=== PATIENT | female | born 1955 ===

== ENCOUNTER 2016-09-07 11:51 | Emergency (ER) | payer OTHER ==
[2016-09-07 12:10] VITALS: BP 127/75; PULSE 87; RESP 20; TEMP 98.5; O2SAT 97
[2016-09-07] MEDS ORDERED: Acetaminophen-Codeine 300/30 mg Tab PO STA (12:53)
--- NOTE | 2016-09-07 13:09 | ED PDOC ---
HPI: Trauma/Fall - HPI Time Seen by Provider: 09/07/16 12:24 Chief Complaint (Nursing): Rib Injury Chief Complaint (Provider): right sided rib pain History Per: Patient History/Exam Limitations: no limitations Onset/Duration Of Symptoms: Days (x 8) Injury Occurred (Timing): Days Ago: (x 8) Additional Complaint(s): Rita Webster is a 61 year old female, with a previous medical history of hypertension and herniated lumbar disc, who presents to the ED with complaints of right sided rib pain ongoing for the past 8 days secondary to injuring herself. Pt reports 8 days prior to arrival she was shopping in the grocery store when she attempted to reach for an [employer] cake and she leaned over a counter height freezet and after she grabbed the cake, she bumped her right ribs (below breast) against the freezer--causing an immediate sharp rib pain and she heard/felt a "crack". Pt states pain is constant. Pt reports to self medicating with advil to alleviate symptoms with no relief. Pt states pain is worse with movement and deep inhalation or if coughs. Pt denies any shortness of breath. PMD: Zohaib Clinton MD Past Medical History Reviewed: Historical Data, Nursing Documentation, Vital Signs Vital Signs: Last Vital Signs Temp 98.5 F 09/07/16 12:05 Pulse 87 09/07/16 12:05 Resp 20 09/07/16 12:05 BP 127/75 09/07/16 12:05 Pulse Ox 97 09/07/16 12:05 - Medical History PMH: HTN - Family History Family History: States: No Known Family Hx - Social History Current smoker - smoking cessation education provided: No Alcohol: None Drugs: Denies - Immunization History Hx Tetanus Toxoid Vaccination: No Hx Influenza Vaccination: No Hx Pneumococcal Vaccination: No - Home Medications Home Medications: Ambulatory Orders Medication Instructions Recorded Oxycodone HCl/Acetaminophen 1 tab PO Q6H PRN #5 tab 08/23/15 [Percocet 325 mg-5 mg] - Allergies Allergies/Adverse Reactions: Allergies Allergy/AdvReac Type Severity Reaction Status Date / Time No Known Allergies Allergy Verified 08/23/15 08:33 Review of Systems ROS Statement: Except As Marked, All Systems Reviewed And Found Negative Cardiovascular: Negative for: Chest Pain Respiratory: Negative for: Shortness of Breath Musculoskeletal: Positive for: Other (right sided rib pain ) Physical Exam - Reviewed Nursing Documentation Reviewed: Yes Vital Signs Reviewed: Yes - Physical Exam Appears: Positive for: Well, Non-toxic, No Acute Distress Skin: Positive for: Normal Color, Warm, DRY Eye Exam: Positive for: Normal appearance Neck: Positive for: Normal Cardiovascular/Chest: Positive for: Regular Rate, Rhythm. Negative for: Chest Non Tender (extremely tender along the ribs under the right breast ) Respiratory: Positive for: Normal Breath Sounds. Negative for: Decreased Breath Sounds, Respiratory Distress Gastrointestinal/Abdominal: Positive for: Soft. Negative for: Tenderness Back: Positive for: Normal Inspection Extremity: Positive for: Normal ROM Lymphatic: Positive for: Deferred Neurologic/Psych: Positive for: Alert, Oriented - ECG O2 Sat by Pulse Oximetry: 97 (RA) Pulse Ox Interpretation: Normal Medical Decision Making Medical Decision Making: Initial Impression: rib fracture vs contusion Initial Plan: * x-ray ribs and chest (will get CT if CXR/Ribs negative as sometimes rib fxs can be missed on plain films) * cold pack treatment * Tylenol/codeine * reevaluation 13:45 X-ray ribs and chest FINDINGS: RIGHT RIBS: There is no acute rib fracture or bone destruction. LUNGS: There is discoid atelectasis/scarring in the lower lobes. PLEURA: No pneumothorax or pleural fluid. CARDIOVASCULAR: Normal sized heart. No pulmonary vascular congestion. OTHER FINDINGS: None. IMPRESSION: No acute rib fracture. No pneumothorax or pleural effusion. PROGRESS NOTE(S): 2:41 PM--pt has returned from CT. Will follow up CT result. Scribe Attestation: Documented by Windy Vera, acting as a scribe for David Meng Jr., D.O. Provider Scribe Attestation: All medical record entries made by the Scribe were at my direction and personally dictated by me. I have reviewed the chart and agree that the record accurately reflects my personal performance of the history, physical exam, medical decision making, and the department course for this patient. I have also personally directed, reviewed, and agree with the discharge instructions and disposition. Disposition - Clinical Impression Clinical Impression: Rib pain on right side - Patient ED Disposition Is Patient to be Admitted: Transfer of Care - Disposition Referrals: Zohaib Clinton MD [Primary Care Provider] - Disposition Time: 15:00 Condition: FAIR Patient Signed Over To: Windy Malone Handoff Comments: To follow up CT scan results (to assess if any rib fractures) - POA Present On Arrival: None
[2016-09-07] MEDS ORDERED: Acetaminophen-Codeine 300/30 mg Tab ONE (13:22)
--- NOTE | 2016-09-07 13:46 | RAD ---
PROCEDURE: Radiographs of the Chest and Right Ribs. HISTORY: Right rib pain; heard a crack COMPARISON: None available. TECHNIQUE: Frontal radiograph of the chest and multiple oblique radiographs of the right ribs were obtained. FINDINGS: RIGHT RIBS: There is no acute rib fracture or bone destruction. LUNGS: There is discoid atelectasis/scarring in the lower lobes. PLEURA: No pneumothorax or pleural fluid. CARDIOVASCULAR: Normal sized heart. No pulmonary vascular congestion. OTHER FINDINGS: None. IMPRESSION: No acute rib fracture. No pneumothorax or pleural effusion.
--- NOTE | 2016-09-07 15:22 | CT ---
PROCEDURE: CT Chest without contrast HISTORY: Blunt right rib trauma with rib pain; r/o rib fxs COMPARISON: None. TECHNIQUE: Contiguous axial images were obtained through the chest without intravenous contrast enhancement. Sagittal and coronal reconstructions were performed. Radiation dose (DLP): 470.86 MGy-cm. This CT exam was performed using one or more of the following dose reduction techniques: Automated exposure control, adjustment of the mA and/or kV according to patient size, and/or use of iterative reconstruction technique. FINDINGS: LUNGS: There is linear subsegmental atelectasis/scarring in the posterior basal segment of the left lower lobe and subsegmental atelectasis in the right lung base. There is dependent atelectasis in both lungs. There is no focal consolidation. There are no endobronchial lesions. There is no suspicious pulmonary nodule or mass. MEDIASTINUM: The aorta is normal in caliber. The heart is normal in size. There is no pericardial effusion. There is no pathologic mediastinal adenopathy. Subcentimeter mediastinal lymph nodes are likely reactive in etiology. PLEURA: No pleural fluid. No pneumothorax. BONES: There is no acute rib fracture. No destructive lesion. UPPER ABDOMEN: Both adrenal glands are normal. There is no cholelithiasis. OTHER FINDINGS: None. IMPRESSION: No acute rib fracture, pneumo thorax or hemothorax. No evidence of lung contusion.
--- NOTE | 2016-09-07 15:58 | ED PDOC ---
- ECG O2 Sat by Pulse Oximetry: 97 (RA) Pulse Ox Interpretation: Normal Medical Decision Making Medical Decision Makin:00 Pt endorsed to me by David Meng Jr., D.O. pending CT results and disposition. 15:21 CT chest FINDINGS: LUNGS: There is linear subsegmental atelectasis/scarring in the posterior basal segment of the left lower lobe and subsegmental atelectasis in the right lung base. There is dependent atelectasis in both lungs. There is no focal consolidation. There are no endobronchial lesions. There is no suspicious pulmonary nodule or mass. MEDIASTINUM: The aorta is normal in caliber. The heart is normal in size. There is no pericardial effusion. There is no pathologic mediastinal adenopathy. Subcentimeter mediastinal lymph nodes are likely reactive in etiology. PLEURA: No pleural fluid. No pneumothorax. BONES: There is no acute rib fracture. No destructive lesion. UPPER ABDOMEN: Both adrenal glands are normal. There is no cholelithiasis. OTHER FINDINGS: None. IMPRESSION: No acute rib fracture, pneumo thorax or hemothorax. No evidence of lung contusion. 15:30 Pt's name was searched on the [employer] database and was found to have filled a prescription of percocet on 08/17/16 for 15 days. Patient will be discharged with a script for 10 pills of Tylenol number 3 until she follows up with her PMD. 15:58 Upon provider reevaluation patient is feeling better, is medically stable, and requires no further treatment in the ED at this time. Patient will be discharged home with Rx for tylenol/codeine. Counseling was provided and all questions were answered regarding diagnosis and need for follow up with PMD. There is agreement to discharge plan. Return if symptoms persist or worsen. Scribe Attestation: Documented by Windy Vera, acting as a scribe for Windy Malone MD. Provider Scribe Attestation: All medical record entries made by the Scribe were at my direction and personally dictated by me. I have reviewed the chart and agree that the record accurately reflects my personal performance of the history, physical exam, medical decision making, and the department course for this patient. I have also personally directed, reviewed, and agree with the discharge instructions and disposition. Disposition Doctor Will See Patient In The: Office Counseled Patient/Family Regarding: Studies Performed, Diagnosis, Need For Followup, Rx Given - Clinical Impression Clinical Impression: Rib contusion - POA Present On Arrival: Falls Or Trauma - Disposition Referrals: Zohaib Clinton MD [Primary Care Provider] - Disposition: Routine/Home Disposition Time: 15:38 Condition: IMPROVED Prescriptions: Ibuprofen [Motrin] 600 mg PO Q6H PRN #20 tab PRN Reason: Pain, Moderate (4-7) Acetaminophen with Codeine [Tylenol with Codeine No. 3 300 mg-30 mg] 1 tab PO Q6H PRN #10 tab PRN Reason: Pain, Severe (8-10) Instructions: Rib Contusion (ED)
== END 2016-09-07 15:55 | disposition home or self-care (01) ==
LOC: H.ER 11:51 → SUPCPDRO 11:51 → H.ER 15:55
DX: S20.211A Contusion of right front wall of thorax, initial encounter (principal); W22.8XXA Striking against or struck by other objects, initial encounter; Y92.512 Supermarket, store or market as the place of occurrence of the external cause

== ENCOUNTER 2017-11-08 16:42 | Emergency (ER) | payer MEDICAID, OTHER ==
[2017-11-08 16:53] VITALS: TEMP 98; O2SAT 100
[2017-11-08] MEDS ORDERED: Sodium Chloride 0.9% 1,000 ML IV STA (17:07)
--- NOTE | 2017-11-08 17:11 | ED PDOC ---
HPI: General Adult Time Seen by Provider: 11/08/17 16:56 Chief Complaint (Nursing): Abdominal Pain Chief Complaint (Provider): Abd pain History Per: Patient History/Exam Limitations: no limitations Onset/Duration Of Symptoms: Days (3 months) Other Location:: Current Symptoms Are (Timing): Still Present Additional Complaint(s): Pt. with RUQ abd pain for 2-3 months. Was suppose to get ultraound done prior, but had food so did not do it. Then she had insurance issues and did not get it. Here today so she can get an ultrasound. Also has R flank with pain on a bump that gets bigger and smaller on its own. No injury she recalls. No new food. No nausea, vomit, diarrhea, weakness, dysuria, lower abd pain. Has chronic low back pain and sees pain management for it. Gets norco, steroids, and other meds for it. Past Medical History Reviewed: Nursing Documentation, Vital Signs Vital Signs: Last Vital Signs Temp 98 F 11/08/17 16:50 Pulse 97 H 11/08/17 16:50 Resp 20 11/08/17 16:50 BP 128/80 11/08/17 16:50 Pulse Ox 100 11/08/17 17:13 - Medical History PMH: Back Problems (herniated lumbar discs with chronic pain), HTN - Surgical History Surgical History: No Surg Hx - Family History Family History: States: Unknown Family Hx - Living Arrangements Living Arrangements: With Family - Immunization History Hx Tetanus Toxoid Vaccination: No Hx Influenza Vaccination: No Hx Pneumococcal Vaccination: No - Home Medications Home Medications: Ambulatory Orders Medication Instructions Recorded Oxycodone HCl/Acetaminophen 1 tab PO Q6H PRN #5 tab 08/23/15 [Percocet 325 mg-5 mg] Acetaminophen with Codeine 1 tab PO Q6H PRN #10 tab 09/07/16 [Tylenol with Codeine No. 3 300 mg-30 mg] Ibuprofen [Motrin] 600 mg PO Q6H PRN #20 tab 09/07/16 traMADol [Ultram] 50 mg PO BID PRN 3 Days tab 11/08/17 - Allergies Allergies/Adverse Reactions: Allergies Allergy/AdvReac Type Severity Reaction Status Date / Time No Known Allergies Allergy Verified 11/08/17 16:50 Review of Systems ROS Statement: Except As Marked, All Systems Reviewed And Found Negative Gastrointestinal: Positive for: Abdominal Pain Musculoskeletal: Positive for: Back Pain Skin: Positive for: Other (lump) Physical Exam - Reviewed Nursing Documentation Reviewed: Yes Vital Signs Reviewed: Yes - Physical Exam Appears: Positive for: Non-toxic, No Acute Distress Head Exam: Positive for: ATRAUMATIC, NORMAL INSPECTION, NORMOCEPHALIC Skin: Positive for: Normal Color, Warm, DRY Neck: Positive for: Normal, Painless ROM Cardiovascular/Chest: Positive for: Regular Rate, Rhythm Respiratory: Positive for: CNT, Normal Breath Sounds Gastrointestinal/Abdominal: Positive for: Soft, Tenderness (RUQ lateral mild; R flank medial with echymosis raised area 1cm diameter that is mild tender; no dc , erythema, or fluctuance.) Back: Positive for: Normal Inspection Extremity: Positive for: Normal ROM. Negative for: Tenderness Neurologic/Psych: Positive for: Alert, Oriented - Laboratory Results Result Diagrams: 11/08/17 17:27 11/08/17 17:27 Interpretation Of Abn Labs: no acute - ECG O2 Sat by Pulse Oximetry: 100 Pulse Ox Interpretation: Normal - CT Scan/US US Other Rad Studies (CT/US): Read By Radiologist Other Rad Interpretation: no acute - Progress ED Course And Treament: 1818: Stable. AAOx3. Pain free. Tolerated po. FU with pcp. Has chronic pains. Disposition - Clinical Impression Clinical Impression: Abdominal pain, Back pain - Patient ED Disposition Is Patient to be Admitted: No Counseled Patient/Family Regarding: Studies Performed, Diagnosis, Need For Followup - Disposition Referrals: [facility] [Outside] - 11/10/17 Disposition: Routine/Home Disposition Time: 18:19 Condition: STABLE Additional Instructions: Return if not better in 3 days. Prescriptions: traMADol [Ultram] 50 mg PO BID PRN 3 Days tab PRN Reason: Pain, Moderate (4-7) Instructions: Chronic Pain (DC), Stomach Ache and Stomach Upset
[2017-11-08 17:43] LABS: ALB/GLOB RATIO 1.3 (1.0-2.1); ALBUMIN 3.9 g/dL (3.5-5.0); ALT/SGPT 20 U/L (9-52); AST/SGOT 18 U/L (14-36); BLOOD UREA NITROGEN 15 mg/dl (7-17); CALCIUM 9.2 mg/dL (8.4-10.2); GFR AFRICAN-AMERICAN > 60; GFR NON-AFRICAN AMERICAN > 60; PARTIAL THROMBOPLASTIN TIME 30.4 Seconds (25.6-37.1); PROTHROMBIN TIME 10.9 Seconds (9.8-13.1)
[2017-11-08 17:50] LABS: BASO % 0.5 % (0.0-2.0); EOS % 0.1 % (0.0-4.0); HEMOGLOBIN 13.8 g/dL (12.0-16.0); LYMPH # 1.4 K/uL (1.0-4.3); LYMPH % 20.6 % (20.0-40.0); MEAN CORPUSCULAR HEMOGLOBIN 30.8 pg (27.0-31.0); MEAN CORPUSCULAR HGB CONC 34.2 g/dL (33.0-37.0); MEAN PLATELET VOLUME 7.4 fl (7.2-11.7); MONO # 0.3 K/uL (0.0-0.8); MONO % 4.1 % (0.0-10.0); NEUT % 74.7 % (50.0-75.0); NRBC % 0.2 % (0.0-0.0); RBC 4.46 Mil/uL (3.80-5.20); RED CELL DISTRIBUTION WIDTH 14.4 % (11.5-14.5); WHITE BLOOD COUNT 6.7 K/uL (4.8-10.8)
[2017-11-08 17:57] LABS: MEAN CELL VOLUME 90.3 fl (81.0-99.0)
[2017-11-08 18:52] VITALS: BP 128/79; PULSE 82; RESP 14
--- NOTE | 2017-11-09 12:08 | US ---
HISTORY: RUQ pain; eval kidney, liver, gall bladder COMPARISON: None. TECHNIQUE: Sonographic evaluation of the right upper quadrant of the abdomen. FINDINGS: LIVER: Measures 15.1 cm in length. Normal echogenicity of the liver parenchyma. No mass. No intrahepatic bile duct dilatation. GALLBLADDER: The gallbladder is incompletely distended and otherwise appears unremarkable. The patient reportedly is not completely NPO prior to the examination. COMMON BILE DUCT: Measures 4.6 mm. No stones. No dilatation. PANCREAS: The pancreas body appears unremarkable the remainder obscured by overlying bowel. RIGHT KIDNEY: Measures 11.2 cm in length. No obstructive uropathy, solid mass or urolithiasis is appreciated. No cystic changes seen or perinephric fluid collection. Mild cortical atrophy is appreciated with slight increase in cortical echogenicity potentially reflecting intrinsic medical renal disease. AORTA: Obscured by bowel completely. IVC: Obscured by bowel completely. OTHER FINDINGS: None . IMPRESSION: 1. The body of the pancreas is unremarkable the remainder obscured by overlying bowel. 2. Partially contracted gallbladder. Limited evaluation of the wall results. No pericholecystic fluid collection or sonographic Fregoso's sign is reported. No cholelithiasis is associated in the common bile duct caliber is normal. 3. Potential intrinsic medical renal disease right kidney with right kidney otherwise unremarkable. Concordant preliminary report from [facility], 11/08/2017.
--- NOTE | 2017-11-09 13:53 | US ---
PROCEDURE: SOFT-TISSUE LIMITED ULTRASOUND (ABDOMINAL WALL RIGHT FLANK) HISTORY: R flank bruise COMPARISON: None available TECHNIQUE: Using high-frequency linear array transducer, longitudinal and transverse projections of been submitted for an apparent palpable abnormality at the right flank abdominal wall/back soft tissues. FINDINGS: No suspicious cyst or solid lesion is encountered throughout the area of concern. Unremarkable dermal, subcutaneous and muscular soft tissues are encountered. IMPRESSION: Unremarkable right dorsal abdominal wall/flank soft tissue extending to right back soft tissue as well. Clinical concern remains then follow-up CT or MRI may be considered. Concordant preliminary report from [facility], 11/08/2017.
== END 2017-11-08 18:50 | disposition home or self-care (01) ==
LOC: H.ER 16:42
DX: R10.9 Unspecified abdominal pain (principal); M54.9 Dorsalgia, unspecified; G89.29 Other chronic pain; I10 Essential (primary) hypertension
CPT/HCPCS: 76705; 76882; 80053; 85025; 85610; 85730; 96360; 99285; J7030